=== PATIENT | female | born 2000 | race Caucasian/White ===

== ENCOUNTER 2021-11-06 11:53 | Outpatient (CLI) | payer OTHER | END 2021-11-06 14:19 | disposition home or self-care (01) | LOC: GENOP 11:53 | DX: O47.03 False labor before 37 completed weeks of gestation, third trimester (principal); Z3A.33 33 weeks gestation of pregnancy | CPT/HCPCS: 81001; 84112; G0463 ==

== ENCOUNTER 2021-12-19 17:20 | Inpatient (IN) | payer OTHER ==
[~2021-12-19] VITALS: Ht 165.1 cm; Wt 74.8 kg
[2021-12-19 18:30] LABS: RED BLOOD COUNT 3.78 M/UL (4.00-5.10); WHITE BLOOD COUNT 9.9 K/UL (4.5-11.0)
[2021-12-19] MEDS ORDERED: ZOFRAN 4 MG TAB4 MG PO (18:45)
[2021-12-19] MEDS ORDERED: PRENATABS FA T1 EACH PO (18:46)
[2021-12-20] MEDS ORDERED: IBUPROFEN600 MG PO (19:06)
[2021-12-20] MEDS ORDERED: DOCUSATE SODIU250 MG PO (19:06)
[2021-12-21] MEDS ORDERED: HYDROCODON-ACE1 EAC4 PO (10:07)
== END 2021-12-22 12:47 | disposition home or self-care (01) | DRG 807 ==
LOC: GENOP 17:20 → OB 17:53
PROVIDERS: Obstetrics & Gynecology; ADMIT Obstetrics & Gynecology
PROC: 10E0XZZ Delivery of Products of Conception, External Approach (ICD-10-PCS; principal; 2021-12-20)
PROC: 10907ZC Drainage of Amniotic Fluid, Therapeutic from Products of Conception, Via Natural or Artificial Opening (ICD-10-PCS; 2021-12-20)
PROC: 3E033VJ Introduction of Other Hormone into Peripheral Vein, Percutaneous Approach (ICD-10-PCS; 2021-12-20)
PROC: 4A1H7CZ Monitoring of Products of Conception, Cardiac Rate, Via Natural or Artificial Opening (ICD-10-PCS; 2021-12-20)
PROC: 10H073Z Insertion of Monitoring Electrode into Products of Conception, Via Natural or Artificial Opening (ICD-10-PCS; 2021-12-20)
PROC: 0UH97HZ Insertion of Contraceptive Device into Uterus, Via Natural or Artificial Opening (ICD-10-PCS; 2021-12-20)
PROC: 0HQ9XZZ Repair Perineum Skin, External Approach (ICD-10-PCS; 2021-12-20)
PROC: 3E0234Z Introduction of Serum, Toxoid and Vaccine into Muscle, Percutaneous Approach (ICD-10-PCS; 2021-12-20)
DX: O99.344 Other mental disorders complicating childbirth (principal); Z37.0 Single live birth; F41.9 Anxiety disorder, unspecified; O99.824 Streptococcus B carrier state complicating childbirth; O70.0 First degree perineal laceration during delivery; Z3A.39 39 weeks gestation of pregnancy; Z82.49 Family history of ischemic heart disease and other diseases of the circulatory system; Z83.3 Family history of diabetes mellitus; Z82.5 Family history of asthma and other chronic lower respiratory diseases; Z23 Encounter for immunization; Z85.71 Personal history of Hodgkin lymphoma
CPT/HCPCS: 36415; 81001; 85014; 85018; 85025; 90471; 90707; J2590